=== PATIENT | male | born 1980 | race Two or more races ===

== ENCOUNTER 2024-10-24 15:10 | Inpatient (IN) | payer OTHER ==
[~2024-10-24] VITALS: Ht 170.2 cm; Wt 74.8 kg
[2024-10-24] MEDS ORDERED: COZAAR50 MG PO (16:00)
--- NOTE | 2024-10-24 16:02 | NUR ---
SE RECIBE MASCULINO ALERTA Y ORIENTADO X3 CUAL REFIERE PRESENTA MOLESTIA EN CUADRANTE INFERIOR LADO DERECHO DESDE LA MADRUGADA DE HOY. NIEGA VOMITOS, NAUSEAS Y/O FIEBRE. PTE DE DR.BAEZ SOLORIO.
[2024-10-24] MEDS ORDERED: 0.9 % SODIUM CHLORIDE 1,000 ML IV STA (16:48)
[2024-10-24] MEDS ORDERED: PIPERACILLIN/TAZOBACTAM SODIUM 3.375 GM VIAL IV ONE (17:00)
--- NOTE | 2024-10-24 17:06 | NUR ---
SE EDUCA A PTE SOBRE [place] MED[facility], SE EVON MUESTRAS LABORATRIO UTILIZANDO MEDIDAS ASEPTICAS. SE COLOCA H/L CHRISTINE DE EDEMA. SE ADMINISTRA MEDICAMENTOS LOS CUALES TOLERA.
[2024-10-24] MEDS ORDERED: KETOROLAC TROMETHAMINE 30 MG VIAL IV ONE (17:15)
[2024-10-24] MEDS ORDERED: ACETAMINOPHEN 500 MG GEL..CAP PO PRN (17:30)
[2024-10-24] MEDS ORDERED: ONDANSETRON HCL 4 MG in 0.9 % SODIUM CHLORIDE 50 ML IV PRN (17:30)
[2024-10-24] MEDS ORDERED: MORPHINE SULFATE 4 MG/ML CARTRIDGE IV PRN (17:30)
[2024-10-24] MEDS ORDERED: 0.9 % SODIUM CHLORIDE 1,000 ML IV SCH (17:30)
[2024-10-24 17:32] LABS: HEMATOCRIT 47.7 % (39.0-48.0); MEAN CELL VOLUME 90.5 fL (80.0-100.00); MEAN CORPUSCULAR HEMOGLOBIN 30.4 pg (27.00-32.0); MEAN CORPUSCULAR HGB CONC 33.6 g/dl (32.0-36.0); PLATELET COUNT 338 K/uL (150-450); RED BLOOD COUNT 5.27 M/uL (4.00-6.00); RED CELL DISTRIBUTION WIDTH 12.8 % (11.5-14.5)
[2024-10-24 17:58] LABS: CALCIUM 9.3 mg/dL (8.5-10.1); CREATININE SERUM 0.82 mg/dL (0.70-1.30); GFR 101.15; POTASSIUM 3.99 mEq/L (3.5-5.1)
[2024-10-24] MEDS ORDERED: PIPERACILLIN/TAZOBACTAM SODIUM 3.375 GM in DEXTROSE 5 % IN WATER 100 ML IV SCH (18:00)
[2024-10-24] MEDS ORDERED: METRONIDAZOLE/SODIUM CHLORIDE 100 ML IV SCH (18:13)
[2024-10-24] MEDS ORDERED: METHYLPREDNISOLONE SOD SUCC 125 MG VIAL IV ONE (18:15)
[2024-10-24] MEDS ORDERED: DIPHENHYDRAMINE HCL 50 MG/ML VIAL 1ML IV ONE (18:15)
[2024-10-24 18:18] LABS: PARTIAL THROMBOPLASTIN TIME 27.6 SECONDS (22.0-34.0); PROTHROMBIN TIME 10.9 SECONDS (9.0-11.5)
[2024-10-24 19:49] LABS: URINE APPEARANCE Clear; URINE BILIRRUBIN Negative (NEGATIVE); URINE BLOOD Negative; URINE COLOR Yellow; URINE GLUCOSE Negative (NEGATIVE); URINE KETONE 15 (NEGATIVE); URINE LEUKOCYTE Negative; URINE NITRATE Negative; URINE PROTEIN Negative (NEGATIVE)
[2024-10-24 19:50] LABS: URINE BACTERIA 7.3 uL (0.0-1933)
[2024-10-24 20:00] LABS: URINE EPITHELIAL CELLS 0.4 uL (0.0-38.8); URINE WBC 0.9 uL (0.0-23.2)
[2024-10-24] MEDS ORDERED: CIPROFLOXACIN IN 5 % DEXTROSE 200 ML IV SCH (21:00)
[2024-10-24] MEDS ORDERED: levoFLOXacin IN DEXTROSE 5 % 5 MG/ML PIGGYBAG IV SCH (23:33)
[2024-10-24] MEDS ORDERED: KETOROLAC TROMETHAMINE 30 MG VIAL IV PRN (23:45)
[2024-10-24] MEDS ORDERED: ONDANSETRON HCL 2 MG/ML VIAL IV PRN (23:45)
[2024-10-25 01:33] VITALS: BP 144/65; O2SAT 93
[2024-10-25 03:45] VITALS: BP 114/73; O2SAT 100
[2024-10-25 08:10] VITALS: BP 105/71; O2SAT 98
[2024-10-25 08:41] LABS: HEMATOCRIT 45.4 % (39.0-48.0); HEMOGLOBIN 15.6 g/dL (13-16.00); MEAN CELL VOLUME 89.3 fL (80.0-100.00); MEAN CORPUSCULAR HEMOGLOBIN 30.7 pg (27.00-32.0); MEAN CORPUSCULAR HGB CONC 34.4 g/dl (32.0-36.0); PLATELET COUNT 341 K/uL (150-450); RED BLOOD COUNT 5.08 M/uL (4.00-6.00); RED CELL DISTRIBUTION WIDTH 12.9 % (11.5-14.5)
[2024-10-25] MEDS ORDERED: LOSARTAN POTASSIUM 50 MG TABLET PO SCH (09:00)
[2024-10-25] MEDS ORDERED: FAMOTIDINE/PF 20 MG in 0.9 % SODIUM CHLORIDE 8 ML IV PUSH SCH (09:00)
[2024-10-25 10:27] LABS: CALCIUM 8.4 mg/dL (8.5-10.1); CREATININE SERUM 0.69 mg/dL (0.70-1.30); GFR 123.44; POTASSIUM 4.52 mEq/L (3.5-5.1)
== END 2024-10-25 15:22 | disposition home or self-care (01) | DRG 331 ==
LOC: ER 15:12 → SURH 17:55 → SEC-K 17:55 → SURH 23:57
PROVIDERS: Emergency Medicine; General Practice; Surgery; ADMIT Internal Medicine; ATTEND Internal Medicine
PROC: 0DBH4ZZ Excision of Cecum, Percutaneous Endoscopic Approach (ICD-10-PCS; 2024-10-24)
PROC: 0WQF4ZZ Repair Abdominal Wall, Percutaneous Endoscopic Approach (ICD-10-PCS; 2024-10-24)
PROC: 0DTJ4ZZ Resection of Appendix, Percutaneous Endoscopic Approach (ICD-10-PCS; principal; 2024-10-24 19:15)
DX: K35.890 Other acute appendicitis without perforation or gangrene (principal); K43.9 Ventral hernia without obstruction or gangrene; Z20.822 Contact with and (suspected) exposure to COVID-19